=== PATIENT | male | born 1965 ===

== ENCOUNTER 2021-01-24 16:07 | Inpatient (IN) | payer MEDICARE ==
[2021-01-24] MEDS ORDERED: MELATONIN 5 MG TAB PO PRN (19:22)
[2021-01-24] MEDS: levETIRAcetam 500 MG TAB PO SCH (23:58)
[2021-01-24] MEDS: traZODone 50 MG TAB PO SCH (23:59)
--- NOTE | 2021-01-25 07:12 | History and Physical Report ---
GP History & Physical - History of Present Illness Date of admission: 01/24/21 Date of Examination: 01/25/21 Reason for Admission: Danger to self History of Present Illness: HPI Patient is a 55-year-old single, disabled currently on SSI -[place] male who resides with past medical with no significant past medical history and has past medical history of hypertension, dyslipidemia, CVA admitted to the hospital for paranoid delusion. Per documentation exacerbated the patient stated that he was seeing a man was bringing rats to his house, was reported patient had similar incident in the past after his initial stroke. Patient also observed to be brandishing knives towards his neighbor saying that his gun acute demand. Today patient states that he does not know why he is here or why he should be here because he does not have any acute psychiatric problem. Patient was then informed of his behavioral disturbances patient states he does believe he could have had done that but even if he did he was not self-aware at that time. Patient denies any substance use even though his UDS was positive for marijuana. PAST PSYCHIATRIC HISTORY: Diagnoses: None reported Suicide attempts or Self-harm behavior: None reported Prior psychiatric hospitalizations: None reported Substance Abuse history: None reported Previous psychiatric medications tried: None reported Outpatient treatment: None reported PAST MEDICAL HISTORY: Hypertension, dyslipidemia, CVA Family Psychiatric History: None reported or documented SOCIAL HISTORY Marital Status: SINGLE Living Arrangements: lives with partner Employment Status: [employer] Access to guns/weapons: none reported Education: 12th grade History of Abuse: none reported Legal History: None reported REVIEW OF SYSTEMS Constitutional: Negative for weight loss ENT: Negative for stridor Respiratory: Negative for cough or hemoptysis All other systems reviewed and are negative MENTAL STATUS EXAMINATION General Appearance and Behavior: Age appropriate, good hygiene, wearing appropriate clothes, good eye contact, cooperative polite with questioning. Cooperation: Participating/engaged Psychomotor Behavior: unremarkable and within normal limits Mood: Good Affect and affective range: congruent with mood Thought Process: Fluent/Logical, Thought Content: Within reality, Speech: Normal volume, Regular rate and rhythm, Intellectual Functioning: Average Suicidal Ideation: Denies SI Homicidal Ideation: Denies HI Impulse Control: Unimpaired Insight and Judgment: Normal insight and judgment, Memory: Normal, Attention: Normal, Orientation: Alert, oriented, Assessment and Plan - Psychiatric problem (1) Paranoid schizophrenia Current Visit: Yes Status: Acute Treatment Plan Patient admitted for inpatient psychiatric evaluation, medication adjustment and close monitoring The patient's behavior, mood, sleep and appetite will be closely monitored. Patient enrolled in individual and group therapeutic sessions and encouraged to attend. Patient provided with a safe and structured environment. Patient's physical health needs will be addressed by the Hospitalist. Hospitalist Consulted Labs including CBC, CMP, Lipid profile and Hemoglobin A1C levels ordered for baseline reference Social Assessment will be completed and the Transportation Program Director will work with patient and family to ensure a suitable and safe disposition Medication adjustment will be made as clinically indicated Usual Wellness Congregational/Preservation: - Start Trazodone 50 mg po QHS & 50 mg po QHS PRN between 10 PM & 2 AM for insomnia - Start Melatonin 5 mg po QHS to promote circadian rhythm - Start [place]-3 for brain health, reduce impulsivity, and as adjunctive treatment for mood disorder, continue upon discharge given overall benefits. - Start B1 prophylaxis with 200 mg po for 5 days The patient agreed on the treatment plan, understood the risk, benefit, alternative treatment, potential consequence of no treatment, and gave informed consent. Initial Certification Inpatient psych services: I certify that the inpatient psychiatric services are required for treatment that could reasonably be expected to improve the patient's condition. Estimated days: 7 Post hospital care: primary care provider, psychiatric provider Legal Status: Voluntary Patient Problems: Current Active Problems Paranoid schizophrenia (Acute) Medications and Allergies Allergies Allergy/AdvReac Type Severity Reaction Status Date / Time No Known Drug Allergies Allergy Unknown Verified 01/24/21 23:22 Home Medications Medication Instructions Recorded Confirmed Last Taken Type Aspirin [Adult Aspirin] 81 mg PO DAILY 01/24/21 01/24/21 Unknown History Lisinopril [Zestril] 5 mg PO DAILY 01/24/21 01/24/21 Unknown History Lovastatin [Altoprev] 10 mg PO HS 01/24/21 01/24/21 Unknown History Potassium Chloride [K-Dur] 10 meq PO QDAY 01/24/21 01/24/21 Unknown History hydroCHLOROthiazide [HCTZ] 25 mg PO QDAY 01/24/21 01/24/21 Unknown History levETIRAcetam [Keppra TAB] 500 mg PO BID 01/24/21 01/24/21 Unknown History Active Meds: Active Medications Levetiracetam (Levetiracetam 500 Mg Tab) 500 mg PO BID [facility] Last Admin: 01/24/21 23:58 Dose: 500 mg Documented by: Melatonin (Melatonin 5 Mg Tab) 5 mg PO QHS PRN PRN Reason: Sleep Last Admin: 01/24/21 23:59 Dose: 5 mg Documented by: Trazodone HCl (Trazodone 50 Mg Tab) 50 mg PO QHS [facility] Last Admin: 01/24/21 23:59 Dose: 50 mg Documented by: Results - Results Labs/Vitals: Last Vital Signs Temp 99.7 F H 01/24/21 21:14 Pulse 95 H 01/24/21 21:14 Resp 18 01/24/21 21:14 BP 136/94 01/24/21 21:14 Pulse Ox 97 01/24/21 21:14 Physical Examination - Constitutional Vitals: Vital Signs Temp Pulse Resp BP Pulse Ox 99.7 F H 95 H 18 136/94 97 01/24/21 21:14 01/24/21 21:14 01/24/21 21:14 01/24/21 21:14 01/24/21 21:14 Temperature -Last 24 Hours Temperature 99.7 F Mental Status Exam - Vital signs Last Vital Signs Temp 99.7 F H 01/24/21 21:14 Pulse 95 H 01/24/21 21:14 Resp 18 01/24/21 21:14 BP 136/94 01/24/21 21:14 Pulse Ox 97 01/24/21 21:14 Assessment and Plan - Psychiatric problem (1) Paranoid schizophrenia Current Visit: Yes Status: Acute Physician Certification - Certification Statement Physician Certification Statement: This is an acknowledgement statement that CHACORTA GALLARDO is a 55 year old M who requires inpatient psychiatric admission for treatment which could reasonably be expected to improve the patient's condition for Estimated period of time patient will need to remain in the hospital: [ ] Plan for post-hospital care: [ ]
[2021-01-25] MEDS: levETIRAcetam 500 MG TAB PO SCH ×2 (09:16→21:26)
--- NOTE | 2021-01-25 13:15 | Consultation ---
History of Present Illness - Reason for Consult Consult date: 01/25/21 Medical consult Requesting physician: BETSY TOVAR - History of Present Illness 55-year-old male patient with significant past medical history of seizure disorder on antiepileptic medications hypertension dyslipidemia Was admitted to [facility] unit by psychiatrist for further evaluation management of paranoid schizophrenia. Hospitalist service was requested for medical consult Patient has history of hypertension dyslipidemia and seizures Patient is on appropriate medications follows with primary care physician Patient denies of any chest pain or shortness of breath Denies headache dizziness weakness or numbness No nausea vomiting or abdominal pain Past History Past Medical History: hypertension, hyperlipidemia, seizures Past Surgical History: Other (Abdominal surgery , EGD) Social history: denies: smoking, alcohol abuse, prescription drug abuse Family history: no significant family history Medications and Allergies Allergies Allergy/AdvReac Type Severity Reaction Status Date / Time No Known Drug Allergies Allergy Unknown Verified 01/24/21 23:22 Home Medications Medication Instructions Recorded Confirmed Last Taken Type Aspirin [Adult Aspirin] 81 mg PO DAILY 01/24/21 01/24/21 Unknown History Lisinopril [Zestril] 5 mg PO DAILY 01/24/21 01/24/21 Unknown History Lovastatin [Altoprev] 10 mg PO HS 01/24/21 01/24/21 Unknown History Potassium Chloride [K-Dur] 10 meq PO QDAY 01/24/21 01/24/21 Unknown History hydroCHLOROthiazide [HCTZ] 25 mg PO QDAY 01/24/21 01/24/21 Unknown History levETIRAcetam [Keppra TAB] 500 mg PO BID 01/24/21 01/24/21 Unknown History Active Meds: Active Medications Levetiracetam (Levetiracetam 500 Mg Tab) 500 mg PO BID [facility] Last Admin: 01/25/21 09:16 Dose: 500 mg Documented by: Melatonin (Melatonin 5 Mg Tab) 5 mg PO QHS PRN PRN Reason: Sleep Last Admin: 01/24/21 23:59 Dose: 5 mg Documented by: Trazodone HCl (Trazodone 50 Mg Tab) 50 mg PO QHS [facility] Last Admin: 01/24/21 23:59 Dose: 50 mg Documented by: Review of Systems Constitutional: no weight loss, no weight gain, no fever, no chills Ears, nose, mouth and throat: no nasal congestion, no nasal discharge Cardiovascular: no chest pain, no palpitations Respiratory: no cough, no shortness of breath Gastrointestinal: no abdominal pain, no nausea, no vomiting Genitourinary Male: no dysuria, no hematuria Musculoskeletal: no myalgias, no arthritis Integumentary: no rash, no lesions Neurological: seizures, no weakness, no parathesias Psychiatric: hallucinations, other (Paranoid), no anxiety, no depression Endocrine: no cold intolerance, no heat intolerance, no polydipsia, no polyuria Hematologic/Lymphatic: no easy bruising, no easy bleeding Allergic/Immunologic: no urticaria, no allergic rhinitis Exam - Constitutional Vitals: Temp Pulse Resp BP Pulse Ox 97.3 F L 60 20 107/76 94 01/25/21 08:29 01/25/21 08:29 01/25/21 08:29 01/25/21 08:29 01/25/21 08:29 General appearance: Present: no acute distress, well-nourished - EENT Eyes: Present: PERRL, EOM intact - Neck Neck: Present: supple, normal ROM - Respiratory Respiratory effort: normal Respiratory: bilateral: diminished, negative: rales, rhonchi, wheezing - Cardiovascular Rhythm: regular Heart Sounds: Present: S1 & S2 - Extremities Extremities: no ischemia, No edema - Abdominal General gastrointestinal: Present: soft, non-tender, non-distended, normal bowel sounds - Integumentary Integumentary: Present: clear, warm - Musculoskeletal Musculoskeletal: strength equal bilaterally, generalized weakness - Psychiatric Psychiatric: appropriate mood/affect, cooperative - Neurologic Neurologic: moves all extremities Assessment and Plan - Patient Problems (1) Seizures Plan to address problem: Seizure precautions Resume home seizure medication Do not drive, supportive care (2) Hypertension Plan to address problem: Moderate control, resume home antihypertensives As needed hydralazine (3) Dyslipidemia Plan to address problem: Low-cholesterol diet, continue statin (4) Paranoid schizophrenia Current Visit: Yes Status: Acute Plan to address problem: Management per psych (5) DVT prophylaxis Current Visit: Yes Status: Acute Plan to address problem: SCDs while resting, ambulate as tolerated Closely monitor patient and adjust management as needed Plan of care reviewed with the patient and his nurse Thank you for this consultation we will follow the patient along with you as needed basis Call us with questions
[2021-01-25 20:15] LABS: Basophils # (Auto) 0.1 K/mm3 (0.0-0.1); Basophils % (Auto) 0.6 % (0.0-1.8); Eosinophils # (Auto) 0.4 K/mm3 (0.0-0.4); Eosinophils % (Auto) 3.9 % (0.0-4.3); Hematocrit 46.5 % (35.5-45.6); Hemoglobin 15.3 gm/dl (11.8-15.2); Lymphocytes # (Auto) 2.2 K/mm3 (1.2-5.4); Lymphocytes % (Auto) 20.1 % (13.4-35.0); Mean Corpuscular HGB Conc 33 % (32-34); Mean Corpuscular Volume 98 fl (84-94); Monocytes # (Auto) 1.1 K/mm3 (0.0-0.8); Monocytes % (Auto) 9.8 % (0.0-7.3); Platelet Count 235 K/mm3 (140-440); Red Blood Count 4.72 M/mm3 (3.65-5.03); Red Cell Distribution Width 14.4 % (13.2-15.2)
[2021-01-25 20:36] LABS: Alanine Aminotransferase 14 units/L (7-56); BUN/Creatinine Ratio 19; Blood Urea Nitrogen 23 mg/dL (9-20); Calcium 9.5 mg/dL (8.4-10.2); Chol/HDL Ratio 2.17 %; HDL Cholesterol 52 mg/dL (40-59); Hemolysis Index 14; LDL Cholesterol,Direct 61 mg/dL (50-130)
[2021-01-25] MEDS: traZODone 50 MG TAB PO SCH (21:18)
[2021-01-25] MEDS ORDERED: NON-FORMULARY EACH (Lovastatin [Altoprev] 20 MG Tab.Er.24h) PO SCH (22:00)
--- NOTE | 2021-01-26 07:48 | Progress Note ---
Subjective Date of service: 01/26/21 Principal diagnosis: Paranoid Schizophrenia Subjective Comment: Per Nurse Note: Last evening the patient spent in the activity room interacting appropriately with his peers. He denies si/hi/ah/vh. He has a good appetite and is medication compliant. Patient's mood remains labile. He becomes tearful easily. Due to his stroke he has some difficulty in expressing himself. He stutters before becoming able to get his words out. He apologizes often for everything he does as if he is afraid that he is doing something "wrong". Overnight the patient rested quietly. He presents as sleeping 7 hours. He awoke at 6 am and came out of his room. He was sobbing. He stated he was confused and he felt like he had slept and "missed" something. Patient was reassured that he did not miss anything. He was encouraged to lay down and rest a little while. He was reassured that we would always let him know about activities so he did not have to worry about missing anything. Will continue to monitor patient for safety. The patient was seen today. He is cooperative and pleasant. He does appear a little anxious. He is a/o x 3. He has poor insight. He's unsure as to why he's admitted into the hospital. He states, "I really don't know." Asked him about delusions of man with rats, he states "I really don't know." He says "but I feel calm." The patient denies SI/HI or hallucinations of any kind. REVIEW OF SYSTEMS Constitutional: Negative for weight loss ENT: Negative for stridor Respiratory: Negative for cough or hemoptysis All other systems reviewed and are negative MENTAL STATUS EXAMINATION General Appearance and Behavior: Age appropriate, good hygiene, wearing appropriate clothes, good eye contact, cooperative polite with questioning. Cooperation: Participating/engaged Psychomotor Behavior: unremarkable and within normal limits Mood: calm Affect and affective range: congruent with mood Thought Process: Fluent/Logical, Thought Content: Within reality, Speech: Normal volume, Regular rate and rhythm, Suicidal Ideation: Denies SI Homicidal Ideation: Denies HI Impulse Control: Unimpaired Insight and Judgment: poor insight and judgment, Memory: Limited Attention: Limited Orientation: Alert, oriented, Assessment and Plan (1) Paranoid schizophrenia Current Visit: Yes Status: Acute Treatment Plan Patient admitted for inpatient psychiatric evaluation, medication adjustment and close monitoring The patient's behavior, mood, sleep and appetite will be closely monitored. Patient enrolled in individual and group therapeutic sessions and encouraged to attend. Patient provided with a safe and structured environment. Patient's physical health needs will be addressed by the Hospitalist. Hospitalist Consulted Labs including CBC, CMP, Lipid profile and Hemoglobin A1C levels ordered for baseline reference Social Assessment will be completed and the Software Recruiter will work with patient and family to ensure a suitable and safe disposition Medication adjustment will be made as clinically indicated Start Risperidone 0.25mg po BID Usual Wellness Denominational/Preservation: - Start Trazodone 50 mg po QHS & 50 mg po QHS PRN between 10 PM & 2 AM for insomnia - Start Melatonin 5 mg po QHS to promote circadian rhythm - Start [place]-3 for brain health, reduce impulsivity, and as adjunctive treatment for mood disorder, continue upon discharge given overall benefits. - Start B1 prophylaxis with 200 mg po for 5 days The patient agreed on the treatment plan, understood the risk, benefit, alternative treatment, potential consequence of no treatment, and gave informed consent. Estimated days: 5 Post hospital care: primary care provider, psychiatric provider Medications and Allergies Allergies Allergy/AdvReac Type Severity Reaction Status Date / Time No Known Drug Allergies Allergy Unknown Verified 01/24/21 23:22 Home Medications Medication Instructions Recorded Confirmed Last Taken Type Aspirin [Adult Aspirin] 81 mg PO DAILY 01/24/21 01/24/21 Unknown History Lisinopril [Zestril] 5 mg PO DAILY 01/24/21 01/24/21 Unknown History Lovastatin [Altoprev] 10 mg PO HS 01/24/21 01/24/21 Unknown History Potassium Chloride [K-Dur] 10 meq PO QDAY 01/24/21 01/24/21 Unknown History hydroCHLOROthiazide [HCTZ] 25 mg PO QDAY 01/24/21 01/24/21 Unknown History levETIRAcetam [Keppra TAB] 500 mg PO BID 01/24/21 01/24/21 Unknown History Active Meds: Active Medications Aspirin (Aspirin Ec 81 Mg Tab) 81 mg PO DAILY [facility] Atorvastatin Calcium (Atorvastatin 10 Mg Tab) 5 mg PO QHS [facility] Last Admin: 01/25/21 21:26 Dose: 5 mg Documented by: Levetiracetam (Levetiracetam 500 Mg Tab) 500 mg PO BID [facility] Last Admin: 01/25/21 21:26 Dose: 500 mg Documented by: Lisinopril (Lisinopril 5 Mg Tab) 5 mg PO DAILY [facility] Melatonin (Melatonin 5 Mg Tab) 5 mg PO QHS PRN PRN Reason: Sleep Last Admin: 01/24/21 23:59 Dose: 5 mg Documented by: Trazodone HCl (Trazodone 50 Mg Tab) 50 mg PO QHS [facility] Last Admin: 01/25/21 21:18 Dose: 50 mg Documented by: Results - Results Labs/Vitals: Laboratory Last Values WBC 11.2 K/mm3 (4.5-11.0) H 01/25/21 19:42 RBC 4.72 M/mm3 (3.65-5.03) 01/25/21 19:42 Hgb 15.3 gm/dl (11.8-15.2) H 01/25/21 19:42 Hct 46.5 % (35.5-45.6) H 01/25/21 19:42 MCV 98 fl (84-94) H 01/25/21 19:42 MCH 32 pg (28-32) 01/25/21 19:42 MCHC 33 % (32-34) 01/25/21 19:42 RDW 14.4 % (13.2-15.2) 01/25/21 19:42 Plt Count 235 K/mm3 (140-440) 01/25/21 19:42 Lymph % (Auto) 20.1 % (13.4-35.0) 01/25/21 19:42 [place] % (Auto) 9.8 % (0.0-7.3) H 01/25/21 19:42 Eos % (Auto) 3.9 % (0.0-4.3) 01/25/21 19:42 Baso % (Auto) 0.6 % (0.0-1.8) 01/25/21 19:42 Lymph # (Auto) 2.2 K/mm3 (1.2-5.4) 01/25/21 19:42 [place] # (Auto) 1.1 K/mm3 (0.0-0.8) H 01/25/21 19:42 Eos # (Auto) 0.4 K/mm3 (0.0-0.4) 01/25/21 19:42 Baso # (Auto) 0.1 K/mm3 (0.0-0.1) 01/25/21 19:42 Seg Neutrophils % 65.6 % (40.0-70.0) 01/25/21 19:42 Seg Neutrophils # 7.3 K/mm3 (1.8-7.7) 01/25/21 19:42 Sodium 139 mmol/L (137-145) 01/25/21 19:42 Potassium 4.4 mmol/L (3.6-5.0) 01/25/21 19:42 Chloride 99.7 mmol/L (98-107) 01/25/21 19:42 Carbon Dioxide 30 mmol/L (22-30) 01/25/21 19:42 Anion Gap 14 mmol/L 01/25/21 19:42 BUN 23 mg/dL (9-20) H 01/25/21 19:42 Creatinine 1.2 mg/dL (0.8-1.3) 01/25/21 19:42 Estimated GFR > 60 ml/min 01/25/21 19:42 BUN/Creatinine Ratio 19 % 01/25/21 19:42 Glucose 98 mg/dL (75-100) 01/25/21 19:42 Hemoglobin A1c 5.5 % (4-6) 01/25/21 19:42 Calcium 9.5 mg/dL (8.4-10.2) 01/25/21 19:42 Total Bilirubin 0.50 mg/dL (0.1-1.2) 01/25/21 19:42 AST 22 units/L (5-40) 01/25/21 19:42 ALT 14 units/L (7-56) 01/25/21 19:42 Alkaline Phosphatase 95 units/L (35-129) 01/25/21 19:42 Total Protein 6.6 g/dL (6.3-8.2) 01/25/21 19:42 Albumin 4.0 g/dL (3.9-5) 01/25/21 19:42 Albumin/Globulin Ratio 1.5 % 01/25/21 19:42 Triglycerides 42 mg/dL (2-149) 01/25/21 19:42 Cholesterol 113 mg/dL (50-199) 01/25/21 19:42 LDL Cholesterol Direct 61 mg/dL (50-130) 01/25/21 19:42 HDL Cholesterol 52 mg/dL (40-59) 01/25/21 19:42 Cholesterol/HDL Ratio 2.17 % 01/25/21 19:42 Last Vital Signs Temp 98.9 F 01/25/21 22:00 Pulse 90 01/25/21 22:00 Resp 16 01/25/21 22:00 BP 147/92 01/25/21 22:00 Pulse Ox 99 01/25/21 22:00
[2021-01-26] MEDS: levETIRAcetam 500 MG TAB PO SCH ×2 (09:13→21:10)
[2021-01-26] MEDS: ASPIRIN EC 81 MG TAB PO SCH (09:13)
[2021-01-26] MEDS: risperiDONE 0.25 MG TAB PO SCH ×2 (09:13→21:10)
[2021-01-26] MEDS: LISINOPRIL 5 MG TAB PO SCH (09:14)
[2021-01-26] MEDS ORDERED: hydroCHLOROthiazide 25 MG TAB PO SCH (10:00)
[2021-01-26] MEDS: traZODone 50 MG TAB PO SCH (21:09)
--- NOTE | 2021-01-27 07:58 | Progress Note ---
Subjective Date of service: 01/27/21 Principal diagnosis: Paranoid Schizophrenia Subjective Comment: Per Nurse Note: Patient spent his day in the activity room interacting appropriately with his peers. He denies si/hi/ah/vh. He has a good appetite and is medication compliant. Patient becomes tearful easily, his insight is poor, he says he did not know why he is here. Staff explained to pt the reason he was admitted pt did not remember. Pt was reassured. Will continue to monitor. The patient was seen today. He is cooperative and pleasant. He appears more calm today. He says he slept well. The patient denies SI/HI or hallucinations of any kind. He reports feeling better. REVIEW OF SYSTEMS Constitutional: Negative for weight loss ENT: Negative for stridor Respiratory: Negative for cough or hemoptysis All other systems reviewed and are negative MENTAL STATUS EXAMINATION General Appearance and Behavior: Age appropriate, good hygiene, wearing appropriate clothes, good eye contact, cooperative polite with questioning. Cooperation: Participating/engaged Psychomotor Behavior: unremarkable and within normal limits Mood: better Affect and affective range: congruent with mood Thought Process: Fluent/Logical, Thought Content: Within reality, Speech: Normal volume, Regular rate and rhythm, Suicidal Ideation: Denies SI Homicidal Ideation: Denies HI Impulse Control: Unimpaired Insight and Judgment: poor insight and judgment, Memory: Limited Attention: Limited Orientation: Alert, oriented, Assessment and Plan (1) Paranoid schizophrenia Current Visit: Yes Status: Acute Treatment Plan Patient admitted for inpatient psychiatric evaluation, medication adjustment and close monitoring The patient's behavior, mood, sleep and appetite will be closely monitored. Patient enrolled in individual and group therapeutic sessions and encouraged to attend. Patient provided with a safe and structured environment. Patient's physical health needs will be addressed by the Hospitalist. Hospitalist Consulted Labs including CBC, CMP, Lipid profile and Hemoglobin A1C levels ordered for baseline reference Social Assessment will be completed and the Ged Tutor will work with patient and family to ensure a suitable and safe disposition Medication adjustment will be made as clinically indicated Continue Risperidone 0.25mg po BID Start Zoloft 25mg po daily (nurse reports patient is tearful a lot) Usual Wellness Hoahaoism/Preservation: - Start Trazodone 50 mg po QHS & 50 mg po QHS PRN between 10 PM & 2 AM for insomnia - Start Melatonin 5 mg po QHS to promote circadian rhythm - Start [place]-3 for brain health, reduce impulsivity, and as adjunctive treatment for mood disorder, continue upon discharge given overall benefits. - Start B1 prophylaxis with 200 mg po for 5 days The patient agreed on the treatment plan, understood the risk, benefit, alternative treatment, potential consequence of no treatment, and gave informed consent. Estimated days: 3 Post hospital care: primary care provider, psychiatric provider Medications and Allergies Allergies Allergy/AdvReac Type Severity Reaction Status Date / Time No Known Drug Allergies Allergy Unknown Verified 01/24/21 23:22 Home Medications Medication Instructions Recorded Confirmed Last Taken Type Aspirin [Adult Aspirin] 81 mg PO DAILY 01/24/21 01/24/21 Unknown History Lisinopril [Zestril] 5 mg PO DAILY 01/24/21 01/24/21 Unknown History Lovastatin [Altoprev] 10 mg PO HS 01/24/21 01/24/21 Unknown History Potassium Chloride [K-Dur] 10 meq PO QDAY 01/24/21 01/24/21 Unknown History hydroCHLOROthiazide [HCTZ] 25 mg PO QDAY 01/24/21 01/24/21 Unknown History levETIRAcetam [Keppra TAB] 500 mg PO BID 01/24/21 01/24/21 Unknown History Active Meds: Active Medications Aspirin (Aspirin Ec 81 Mg Tab) 81 mg PO DAILY [facility] Last Admin: 01/26/21 09:13 Dose: 81 mg Documented by: Atorvastatin Calcium (Atorvastatin 10 Mg Tab) 5 mg PO QHS [facility] Last Admin: 01/26/21 21:10 Dose: 5 mg Documented by: Levetiracetam (Levetiracetam 500 Mg Tab) 500 mg PO BID [facility] Last Admin: 01/26/21 21:10 Dose: 500 mg Documented by: Lisinopril (Lisinopril 5 Mg Tab) 5 mg PO DAILY [facility] Last Admin: 01/26/21 09:14 Dose: Not Given Documented by: Melatonin (Melatonin 5 Mg Tab) 5 mg PO QHS PRN PRN Reason: Sleep Last Admin: 01/24/21 23:59 Dose: 5 mg Documented by: Risperidone (Risperidone 0.25 Mg Tab) 0.25 mg PO BID [facility] Last Admin: 01/26/21 21:10 Dose: 0.25 mg Documented by: Trazodone HCl (Trazodone 50 Mg Tab) 50 mg PO QHS [facility] Last Admin: 01/26/21 21:09 Dose: 50 mg Documented by: Results - Results Labs/Vitals: Laboratory Last Values WBC 11.2 K/mm3 (4.5-11.0) H 01/25/21 19:42 RBC 4.72 M/mm3 (3.65-5.03) 01/25/21 19:42 Hgb 15.3 gm/dl (11.8-15.2) H 01/25/21 19:42 Hct 46.5 % (35.5-45.6) H 01/25/21 19:42 MCV 98 fl (84-94) H 01/25/21 19:42 MCH 32 pg (28-32) 01/25/21 19:42 MCHC 33 % (32-34) 01/25/21 19:42 RDW 14.4 % (13.2-15.2) 01/25/21 19:42 Plt Count 235 K/mm3 (140-440) 01/25/21 19:42 Lymph % (Auto) 20.1 % (13.4-35.0) 01/25/21 19:42 [place] % (Auto) 9.8 % (0.0-7.3) H 01/25/21 19:42 Eos % (Auto) 3.9 % (0.0-4.3) 01/25/21 19:42 Baso % (Auto) 0.6 % (0.0-1.8) 01/25/21 19:42 Lymph # (Auto) 2.2 K/mm3 (1.2-5.4) 01/25/21 19:42 [place] # (Auto) 1.1 K/mm3 (0.0-0.8) H 01/25/21 19:42 Eos # (Auto) 0.4 K/mm3 (0.0-0.4) 01/25/21 19:42 Baso # (Auto) 0.1 K/mm3 (0.0-0.1) 01/25/21 19:42 Seg Neutrophils % 65.6 % (40.0-70.0) 01/25/21 19:42 Seg Neutrophils # 7.3 K/mm3 (1.8-7.7) 01/25/21 19:42 Sodium 139 mmol/L (137-145) 01/25/21 19:42 Potassium 4.4 mmol/L (3.6-5.0) 01/25/21 19:42 Chloride 99.7 mmol/L (98-107) 01/25/21 19:42 Carbon Dioxide 30 mmol/L (22-30) 01/25/21 19:42 Anion Gap 14 mmol/L 01/25/21 19:42 BUN 23 mg/dL (9-20) H 01/25/21 19:42 Creatinine 1.2 mg/dL (0.8-1.3) 01/25/21 19:42 Estimated GFR > 60 ml/min 01/25/21 19:42 BUN/Creatinine Ratio 19 % 01/25/21 19:42 Glucose 98 mg/dL (75-100) 01/25/21 19:42 Hemoglobin A1c 5.5 % (4-6) 01/25/21 19:42 Calcium 9.5 mg/dL (8.4-10.2) 01/25/21 19:42 Total Bilirubin 0.50 mg/dL (0.1-1.2) 01/25/21 19:42 AST 22 units/L (5-40) 01/25/21 19:42 ALT 14 units/L (7-56) 01/25/21 19:42 Alkaline Phosphatase 95 units/L (35-129) 01/25/21 19:42 Total Protein 6.6 g/dL (6.3-8.2) 01/25/21 19:42 Albumin 4.0 g/dL (3.9-5) 01/25/21 19:42 Albumin/Globulin Ratio 1.5 % 01/25/21 19:42 Triglycerides 42 mg/dL (2-149) 01/25/21 19:42 Cholesterol 113 mg/dL (50-199) 01/25/21 19:42 LDL Cholesterol Direct 61 mg/dL (50-130) 01/25/21 19:42 HDL Cholesterol 52 mg/dL (40-59) 01/25/21 19:42 Cholesterol/HDL Ratio 2.17 % 01/25/21 19:42 Last Vital Signs Temp 99.1 F 01/26/21 19:42 Pulse 53 L 01/26/21 19:42 Resp 16 01/26/21 19:42 BP 143/76 01/26/21 19:42 Pulse Ox 98 01/26/21 19:42
[2021-01-27] MEDS: LISINOPRIL 5 MG TAB PO SCH (09:57)
[2021-01-27] MEDS: ASPIRIN EC 81 MG TAB PO SCH (09:57)
[2021-01-27] MEDS: levETIRAcetam 500 MG TAB PO SCH ×2 (09:57→21:00)
[2021-01-27] MEDS: risperiDONE 0.25 MG TAB PO SCH ×2 (09:57→21:01)
[2021-01-27] MEDS: SERTRALINE 25 MG TAB PO SCH (09:58)
--- NOTE | 2021-01-27 15:30 | Progress Note ---
Assessment and Plan Assessment and plan: -- Seizure disorder Plan to address problem: Seizure precautions Resume home seizure medication Do not drive, supportive care --Hypertension Plan to address problem: Moderate control, resume home antihypertensives As needed hydralazine -- Dyslipidemia Plan to address problem: Low-cholesterol diet, continue statin --Paranoid schizophrenia Current Visit: Yes Status: Acute Plan to address problem: Management per psych --DVT prophylaxis Current Visit: Yes Status: Acute Plan to address problem: SCDs while resting, ambulate as tolerated Closely monitor patient and adjust management as needed Patient is ambulatory and tolerating oral nutrition Disposition per psych History Interval history: I have seen and examined the patient in activities room in [facility] psych floor Patient feels better happy, he ate his breakfast Denies any nausea vomiting No new complaints Vital signs noted Hospitalist Physical - Constitutional Vitals: Temp Pulse Resp BP Pulse Ox 99.1 F 98 H 20 143/76 99 01/27/21 09:49 01/27/21 09:57 01/27/21 09:49 01/27/21 09:57 01/27/21 09:49 General appearance: Present: no acute distress, well-nourished - EENT Eyes: Present: PERRL, EOM intact - Neck Neck: Present: supple, normal ROM - Respiratory Respiratory effort: normal Respiratory: bilateral: diminished, rhonchi, negative: rales, wheezing - Cardiovascular Rhythm: regular Heart Sounds: Present: S1 & S2 - Extremities Extremities: no ischemia, No edema - Abdominal General gastrointestinal: soft, non-tender, non-distended, normal bowel sounds - Integumentary Integumentary: Present: clear, warm - Psychiatric Psychiatric: appropriate mood/affect, cooperative - Neurologic Neurologic: CNII-XII intact, moves all extremities Results - Labs CBC & Chem 7: 01/25/21 19:42 01/25/21 19:42 Labs: Laboratory Last Values WBC 11.2 K/mm3 (4.5-11.0) H 01/25/21 19:42 RBC 4.72 M/mm3 (3.65-5.03) 01/25/21 19:42 Hgb 15.3 gm/dl (11.8-15.2) H 01/25/21 19:42 Hct 46.5 % (35.5-45.6) H 01/25/21 19:42 MCV 98 fl (84-94) H 01/25/21 19:42 MCH 32 pg (28-32) 01/25/21 19:42 MCHC 33 % (32-34) 01/25/21 19:42 RDW 14.4 % (13.2-15.2) 01/25/21 19:42 Plt Count 235 K/mm3 (140-440) 01/25/21 19:42 Lymph % (Auto) 20.1 % (13.4-35.0) 01/25/21 19:42 [place] % (Auto) 9.8 % (0.0-7.3) H 01/25/21 19:42 Eos % (Auto) 3.9 % (0.0-4.3) 01/25/21 19:42 Baso % (Auto) 0.6 % (0.0-1.8) 01/25/21 19:42 Lymph # (Auto) 2.2 K/mm3 (1.2-5.4) 01/25/21 19:42 [place] # (Auto) 1.1 K/mm3 (0.0-0.8) H 01/25/21 19:42 Eos # (Auto) 0.4 K/mm3 (0.0-0.4) 01/25/21 19:42 Baso # (Auto) 0.1 K/mm3 (0.0-0.1) 01/25/21 19:42 Seg Neutrophils % 65.6 % (40.0-70.0) 01/25/21 19:42 Seg Neutrophils # 7.3 K/mm3 (1.8-7.7) 01/25/21 19:42 Sodium 139 mmol/L (137-145) 01/25/21 19:42 Potassium 4.4 mmol/L (3.6-5.0) 01/25/21 19:42 Chloride 99.7 mmol/L (98-107) 01/25/21 19:42 Carbon Dioxide 30 mmol/L (22-30) 01/25/21 19:42 Anion Gap 14 mmol/L 01/25/21 19:42 BUN 23 mg/dL (9-20) H 01/25/21 19:42 Creatinine 1.2 mg/dL (0.8-1.3) 01/25/21 19:42 Estimated GFR > 60 ml/min 01/25/21 19:42 BUN/Creatinine Ratio 19 % 01/25/21 19:42 Glucose 98 mg/dL (75-100) 01/25/21 19:42 Hemoglobin A1c 5.5 % (4-6) 01/25/21 19:42 Calcium 9.5 mg/dL (8.4-10.2) 01/25/21 19:42 Total Bilirubin 0.50 mg/dL (0.1-1.2) 01/25/21 19:42 AST 22 units/L (5-40) 01/25/21 19:42 ALT 14 units/L (7-56) 01/25/21 19:42 Alkaline Phosphatase 95 units/L (35-129) 01/25/21 19:42 Total Protein 6.6 g/dL (6.3-8.2) 01/25/21 19:42 Albumin 4.0 g/dL (3.9-5) 01/25/21 19:42 Albumin/Globulin Ratio 1.5 % 01/25/21 19:42 Triglycerides 42 mg/dL (2-149) 01/25/21 19:42 Cholesterol 113 mg/dL (50-199) 01/25/21 19:42 LDL Cholesterol Direct 61 mg/dL (50-130) 01/25/21 19:42 HDL Cholesterol 52 mg/dL (40-59) 01/25/21 19:42 Cholesterol/HDL Ratio 2.17 % 01/25/21 19:42 [place]/IV: Voiding Method Toilet Active Medications - Current Medications Current Medications: Generic Name Dose Route Start Last Admin Trade Name Leroyq PRN Reason Stop Dose Admin Aspirin 81 mg 01/26/21 10:00 01/27/21 09:57 Aspirin Ec 81 Mg Tab PO 81 mg DAILY [facility] Administration Atorvastatin Calcium 5 mg 01/25/21 22:00 01/26/21 21:10 Atorvastatin 10 Mg Tab PO 5 mg QHS [facility] Administration Levetiracetam 500 mg 01/24/21 23:00 01/27/21 09:57 Levetiracetam 500 Mg Tab PO 500 mg BID [facility] Administration Lisinopril 5 mg 01/26/21 10:00 01/27/21 09:57 Lisinopril 5 Mg Tab PO 5 mg DAILY [facility] Administration Melatonin 5 mg 01/24/21 19:22 01/24/21 23:59 Melatonin 5 Mg Tab PO 5 mg QHS PRN Administration Sleep Risperidone 0.25 mg 01/26/21 10:00 01/27/21 09:57 Risperidone 0.25 Mg Tab PO 0.25 mg BID [facility] Administration Sertraline HCl 25 mg 01/27/21 10:00 01/27/21 09:58 Sertraline 25 Mg Tab PO 25 mg QDAY [facility] Administration Trazodone HCl 50 mg 01/24/21 22:00 01/26/21 21:09 Trazodone 50 Mg Tab PO 50 mg QHS [facility] Administration
[2021-01-27] MEDS: traZODone 50 MG TAB PO SCH (21:00)
--- NOTE | 2021-01-28 08:21 | Progress Note ---
Subjective Date of service: 01/28/21 Principal diagnosis: Paranoid Schizophrenia Subjective Comment: Per Nurse Note: pt spent last evening in his room, pt is appropriate on the unit, able to make needs known, bright affect, stable mood, denies si/hi, denies a/v/h, medication compliant, good appetite, slept well , presents as sleeping for 8hrs plus, no distress noted, will continue to monitor for safety. The patient was seen today. He is calm, cooperative and pleasant. He denies SI/HI or hallucinations of any kind. He says he feels "great." The patient says he slept well. REVIEW OF SYSTEMS Constitutional: Negative for weight loss ENT: Negative for stridor Respiratory: Negative for cough or hemoptysis All other systems reviewed and are negative MENTAL STATUS EXAMINATION General Appearance and Behavior: Age appropriate, good hygiene, wearing appropriate clothes, good eye contact, calm, cooperative polite with questioning. Cooperation: Participating/engaged Psychomotor Behavior: unremarkable and within normal limits Mood: great Affect and affective range: congruent with mood Thought Process: Fluent/Logical Thought Content: Within reality Speech: Normal volume, Regular rate and rhythm Suicidal Ideation: Denies SI Homicidal Ideation: Denies HI Hallucinations: Denies Delusions: None elicited Impulse Control: Unimpaired Insight and Judgment: limited insight and judgment Memory: Limited Attention: Limited Orientation: Alert, oriented Assessment and Plan (1) Paranoid schizophrenia Current Visit: Yes Status: Acute Treatment Plan Patient admitted for inpatient psychiatric evaluation, medication adjustment and close monitoring The patient's behavior, mood, sleep and appetite will be closely monitored. Patient enrolled in individual and group therapeutic sessions and encouraged to attend. Patient provided with a safe and structured environment. Patient's physical health needs will be addressed by the Hospitalist. Hospitalist Consulted Labs including CBC, CMP, Lipid profile and Hemoglobin A1C levels ordered for baseline reference Social Assessment will be completed and the Stock Car Driver will work with patient and family to ensure a suitable and safe disposition Medication adjustment will be made as clinically indicated Continue Risperidone 0.25mg po BID Continue Zoloft 25mg po daily (nurse reports patient is tearful a lot) Usual Wellness Judaism/Preservation: - Start Trazodone 50 mg po QHS & 50 mg po QHS PRN between 10 PM & 2 AM for insomnia - Start Melatonin 5 mg po QHS to promote circadian rhythm - Start [place]-3 for brain health, reduce impulsivity, and as adjunctive treatment for mood disorder, continue upon discharge given overall benefits. - Start B1 prophylaxis with 200 mg po for 5 days The patient agreed on the treatment plan, understood the risk, benefit, alternative treatment, potential consequence of no treatment, and gave informed consent. Estimated days: 3 Post hospital care: primary care provider, psychiatric provider Medications and Allergies Allergies Allergy/AdvReac Type Severity Reaction Status Date / Time No Known Drug Allergies Allergy Unknown Verified 01/24/21 23:22 Home Medications Medication Instructions Recorded Confirmed Last Taken Type Aspirin [Adult Aspirin] 81 mg PO DAILY 01/24/21 01/24/21 Unknown History Lisinopril [Zestril] 5 mg PO DAILY 01/24/21 01/24/21 Unknown History Lovastatin [Altoprev] 10 mg PO HS 01/24/21 01/24/21 Unknown History Potassium Chloride [K-Dur] 10 meq PO QDAY 01/24/21 01/24/21 Unknown History hydroCHLOROthiazide [HCTZ] 25 mg PO QDAY 01/24/21 01/24/21 Unknown History levETIRAcetam [Keppra TAB] 500 mg PO BID 01/24/21 01/24/21 Unknown History Active Meds: Active Medications Aspirin (Aspirin Ec 81 Mg Tab) 81 mg PO DAILY [facility] Last Admin: 01/27/21 09:57 Dose: 81 mg Documented by: Atorvastatin Calcium (Atorvastatin 10 Mg Tab) 5 mg PO QHS [facility] Last Admin: 01/27/21 21:00 Dose: 5 mg Documented by: Levetiracetam (Levetiracetam 500 Mg Tab) 500 mg PO BID [facility] Last Admin: 01/27/21 21:00 Dose: 500 mg Documented by: Lisinopril (Lisinopril 5 Mg Tab) 5 mg PO DAILY [facility] Last Admin: 01/27/21 09:57 Dose: 5 mg Documented by: Melatonin (Melatonin 5 Mg Tab) 5 mg PO QHS PRN PRN Reason: Sleep Last Admin: 01/24/21 23:59 Dose: 5 mg Documented by: Risperidone (Risperidone 0.25 Mg Tab) 0.25 mg PO BID [facility] Last Admin: 01/27/21 21:01 Dose: 0.25 mg Documented by: Sertraline HCl (Sertraline 25 Mg Tab) 25 mg PO QDAY [facility] Last Admin: 01/27/21 09:58 Dose: 25 mg Documented by: Trazodone HCl (Trazodone 50 Mg Tab) 50 mg PO QHS [facility] Last Admin: 01/27/21 21:00 Dose: 50 mg Documented by: Results - Results Labs/Vitals: Laboratory Last Values WBC 11.2 K/mm3 (4.5-11.0) H 01/25/21 19:42 RBC 4.72 M/mm3 (3.65-5.03) 01/25/21 19:42 Hgb 15.3 gm/dl (11.8-15.2) H 01/25/21 19:42 Hct 46.5 % (35.5-45.6) H 01/25/21 19:42 MCV 98 fl (84-94) H 01/25/21 19:42 MCH 32 pg (28-32) 01/25/21 19:42 MCHC 33 % (32-34) 01/25/21 19:42 RDW 14.4 % (13.2-15.2) 01/25/21 19:42 Plt Count 235 K/mm3 (140-440) 01/25/21 19:42 Lymph % (Auto) 20.1 % (13.4-35.0) 01/25/21 19:42 [place] % (Auto) 9.8 % (0.0-7.3) H 01/25/21 19:42 Eos % (Auto) 3.9 % (0.0-4.3) 01/25/21 19:42 Baso % (Auto) 0.6 % (0.0-1.8) 01/25/21 19:42 Lymph # (Auto) 2.2 K/mm3 (1.2-5.4) 01/25/21 19:42 [place] # (Auto) 1.1 K/mm3 (0.0-0.8) H 01/25/21 19:42 Eos # (Auto) 0.4 K/mm3 (0.0-0.4) 01/25/21 19:42 Baso # (Auto) 0.1 K/mm3 (0.0-0.1) 01/25/21 19:42 Seg Neutrophils % 65.6 % (40.0-70.0) 01/25/21 19:42 Seg Neutrophils # 7.3 K/mm3 (1.8-7.7) 01/25/21 19:42 Sodium 139 mmol/L (137-145) 01/25/21 19:42 Potassium 4.4 mmol/L (3.6-5.0) 01/25/21 19:42 Chloride 99.7 mmol/L (98-107) 01/25/21 19:42 Carbon Dioxide 30 mmol/L (22-30) 01/25/21 19:42 Anion Gap 14 mmol/L 01/25/21 19:42 BUN 23 mg/dL (9-20) H 01/25/21 19:42 Creatinine 1.2 mg/dL (0.8-1.3) 01/25/21 19:42 Estimated GFR > 60 ml/min 01/25/21 19:42 BUN/Creatinine Ratio 19 % 01/25/21 19:42 Glucose 98 mg/dL (75-100) 01/25/21 19:42 Hemoglobin A1c 5.5 % (4-6) 01/25/21 19:42 Calcium 9.5 mg/dL (8.4-10.2) 01/25/21 19:42 Total Bilirubin 0.50 mg/dL (0.1-1.2) 01/25/21 19:42 AST 22 units/L (5-40) 01/25/21 19:42 ALT 14 units/L (7-56) 01/25/21 19:42 Alkaline Phosphatase 95 units/L (35-129) 01/25/21 19:42 Total Protein 6.6 g/dL (6.3-8.2) 01/25/21 19:42 Albumin 4.0 g/dL (3.9-5) 01/25/21 19:42 Albumin/Globulin Ratio 1.5 % 01/25/21 19:42 Triglycerides 42 mg/dL (2-149) 01/25/21 19:42 Cholesterol 113 mg/dL (50-199) 01/25/21 19:42 LDL Cholesterol Direct 61 mg/dL (50-130) 01/25/21 19:42 HDL Cholesterol 52 mg/dL (40-59) 01/25/21 19:42 Cholesterol/HDL Ratio 2.17 % 01/25/21 19:42 Last Vital Signs Temp 98.8 F 01/27/21 19:45 Pulse 83 01/27/21 19:45 Resp 15 01/27/21 19:45 BP 140/74 01/27/21 19:45 Pulse Ox 100 01/27/21 19:45
[2021-01-28] MEDS: SERTRALINE 25 MG TAB PO SCH (10:40)
[2021-01-28] MEDS: levETIRAcetam 500 MG TAB PO SCH ×2 (10:40→22:02)
[2021-01-28] MEDS: ASPIRIN EC 81 MG TAB PO SCH (10:40)
[2021-01-28] MEDS: LISINOPRIL 5 MG TAB PO SCH (10:40)
[2021-01-28] MEDS: risperiDONE 0.25 MG TAB PO SCH ×2 (10:40→22:02)
[2021-01-28] MEDS: traZODone 50 MG TAB PO SCH (22:02)
--- NOTE | 2021-01-29 08:28 | Progress Note ---
Subjective Date of service: 01/29/21 Principal diagnosis: Paranoid Schizophrenia Subjective Comment: Per Nurse Note: 1700 Patient spent his day in the activity room most of the morning interacting appropriately with his peers. He denies SI/HI. His appetite is good, he ate 100% of his meals and he is medication compliant. The patient was seen today. He is calm, cooperative and pleasant. He greats me with a smile. He denies SI/HI or hallucinations of any kind. He says he feels "great." The patient says "God is good. He woke me up this morning." The patient says he slept well. REVIEW OF SYSTEMS Constitutional: Negative for weight loss ENT: Negative for stridor Respiratory: Negative for cough or hemoptysis All other systems reviewed and are negative MENTAL STATUS EXAMINATION General Appearance and Behavior: Age appropriate, good hygiene, wearing appropriate clothes, good eye contact, calm, cooperative polite with questioning. Cooperation: Participating/engaged Psychomotor Behavior: unremarkable and within normal limits Mood: great Affect and affective range: congruent with mood Thought Process: Fluent/Logical Thought Content: Within reality Speech: Normal volume, Regular rate and rhythm Suicidal Ideation: Denies SI Homicidal Ideation: Denies HI Hallucinations: Denies Delusions: None elicited Impulse Control: Unimpaired Insight and Judgment: limited insight and judgment Memory: Limited Attention: Limited Orientation: Alert, oriented Assessment and Plan (1) Paranoid schizophrenia Current Visit: Yes Status: Acute Treatment Plan Patient admitted for inpatient psychiatric evaluation, medication adjustment and close monitoring The patient's behavior, mood, sleep and appetite will be closely monitored. Patient enrolled in individual and group therapeutic sessions and encouraged to attend. Patient provided with a safe and structured environment. Patient's physical health needs will be addressed by the Hospitalist. Hospitalist Consulted Labs including CBC, CMP, Lipid profile and Hemoglobin A1C levels ordered for baseline reference Social Assessment will be completed and the Field Collector will work with patient and family to ensure a suitable and safe disposition Medication adjustment will be made as clinically indicated Continue Risperidone 0.25mg po BID Continue Zoloft 25mg po daily (nurse reports patient is tearful a lot) Usual Wellness Zoroastrian/Preservation: - Start Trazodone 50 mg po QHS & 50 mg po QHS PRN between 10 PM & 2 AM for i nsomnia - Start Melatonin 5 mg po QHS to promote circadian rhythm - Start [place]-3 for brain health, reduce impulsivity, and as adjunctive treatment for mood disorder, continue upon discharge given overall benefits. - Start B1 prophylaxis with 200 mg po for 5 days The patient agreed on the treatment plan, understood the risk, benefit, alternative treatment, potential consequence of no treatment, and gave informed consent. Estimated days: 3 Post hospital care: primary care provider, psychiatric provider Medications and Allergies Allergies Allergy/AdvReac Type Severity Reaction Status Date / Time No Known Drug Allergies Allergy Unknown Verified 01/24/21 23:22 Home Medications Medication Instructions Recorded Confirmed Last Taken Type Aspirin [Adult Aspirin] 81 mg PO DAILY 01/24/21 01/24/21 Unknown History Lisinopril [Zestril] 5 mg PO DAILY 01/24/21 01/24/21 Unknown History Lovastatin [Altoprev] 10 mg PO HS 01/24/21 01/24/21 Unknown History Potassium Chloride [K-Dur] 10 meq PO QDAY 01/24/21 01/24/21 Unknown History hydroCHLOROthiazide [HCTZ] 25 mg PO QDAY 01/24/21 01/24/21 Unknown History levETIRAcetam [Keppra TAB] 500 mg PO BID 01/24/21 01/24/21 Unknown History Active Meds: Active Medications Aspirin (Aspirin Ec 81 Mg Tab) 81 mg PO DAILY [facility] Last Admin: 01/28/21 10:40 Dose: 81 mg Documented by: Atorvastatin Calcium (Atorvastatin 10 Mg Tab) 5 mg PO QHS [facility] Last Admin: 01/28/21 22:02 Dose: 5 mg Documented by: Levetiracetam (Levetiracetam 500 Mg Tab) 500 mg PO BID [facility] Last Admin: 01/28/21 22:02 Dose: 500 mg Documented by: Lisinopril (Lisinopril 5 Mg Tab) 5 mg PO DAILY [facility] Last Admin: 01/28/21 10:40 Dose: 5 mg Documented by: Melatonin (Melatonin 5 Mg Tab) 5 mg PO QHS PRN PRN Reason: Sleep Last Admin: 01/24/21 23:59 Dose: 5 mg Documented by: Risperidone (Risperidone 0.25 Mg Tab) 0.25 mg PO BID [facility] Last Admin: 01/28/21 22:02 Dose: 0.25 mg Documented by: Sertraline HCl (Sertraline 25 Mg Tab) 25 mg PO QDAY [facility] Last Admin: 01/28/21 10:40 Dose: 25 mg Documented by: Trazodone HCl (Trazodone 50 Mg Tab) 50 mg PO QHS [facility] Last Admin: 01/28/21 22:02 Dose: 50 mg Documented by: Results - Results Labs/Vitals: Laboratory Last Values WBC 11.2 K/mm3 (4.5-11.0) H 01/25/21 19:42 RBC 4.72 M/mm3 (3.65-5.03) 01/25/21 19:42 Hgb 15.3 gm/dl (11.8-15.2) H 01/25/21 19:42 Hct 46.5 % (35.5-45.6) H 01/25/21 19:42 MCV 98 fl (84-94) H 01/25/21 19:42 MCH 32 pg (28-32) 01/25/21 19:42 MCHC 33 % (32-34) 01/25/21 19:42 RDW 14.4 % (13.2-15.2) 01/25/21 19:42 Plt Count 235 K/mm3 (140-440) 01/25/21 19:42 Lymph % (Auto) 20.1 % (13.4-35.0) 01/25/21 19:42 [place] % (Auto) 9.8 % (0.0-7.3) H 01/25/21 19:42 Eos % (Auto) 3.9 % (0.0-4.3) 01/25/21 19:42 Baso % (Auto) 0.6 % (0.0-1.8) 01/25/21 19:42 Lymph # (Auto) 2.2 K/mm3 (1.2-5.4) 01/25/21 19:42 [place] # (Auto) 1.1 K/mm3 (0.0-0.8) H 01/25/21 19:42 Eos # (Auto) 0.4 K/mm3 (0.0-0.4) 01/25/21 19:42 Baso # (Auto) 0.1 K/mm3 (0.0-0.1) 01/25/21 19:42 Seg Neutrophils % 65.6 % (40.0-70.0) 01/25/21 19:42 Seg Neutrophils # 7.3 K/mm3 (1.8-7.7) 01/25/21 19:42 Sodium 139 mmol/L (137-145) 01/25/21 19:42 Potassium 4.4 mmol/L (3.6-5.0) 01/25/21 19:42 Chloride 99.7 mmol/L (98-107) 01/25/21 19:42 Carbon Dioxide 30 mmol/L (22-30) 01/25/21 19:42 Anion Gap 14 mmol/L 01/25/21 19:42 BUN 23 mg/dL (9-20) H 01/25/21 19:42 Creatinine 1.2 mg/dL (0.8-1.3) 01/25/21 19:42 Estimated GFR > 60 ml/min 01/25/21 19:42 BUN/Creatinine Ratio 19 % 01/25/21 19:42 Glucose 98 mg/dL (75-100) 01/25/21 19:42 Hemoglobin A1c 5.5 % (4-6) 01/25/21 19:42 Calcium 9.5 mg/dL (8.4-10.2) 01/25/21 19:42 Total Bilirubin 0.50 mg/dL (0.1-1.2) 01/25/21 19:42 AST 22 units/L (5-40) 01/25/21 19:42 ALT 14 units/L (7-56) 01/25/21 19:42 Alkaline Phosphatase 95 units/L (35-129) 01/25/21 19:42 Total Protein 6.6 g/dL (6.3-8.2) 01/25/21 19:42 Albumin 4.0 g/dL (3.9-5) 01/25/21 19:42 Albumin/Globulin Ratio 1.5 % 01/25/21 19:42 Triglycerides 42 mg/dL (2-149) 01/25/21 19:42 Cholesterol 113 mg/dL (50-199) 01/25/21 19:42 LDL Cholesterol Direct 61 mg/dL (50-130) 01/25/21 19:42 HDL Cholesterol 52 mg/dL (40-59) 01/25/21 19:42 Cholesterol/HDL Ratio 2.17 % 01/25/21 19:42 Last Vital Signs Temp 98.0 F 01/28/21 18:49 Pulse 95 H 01/28/21 18:49 Resp 15 01/28/21 18:49 BP 157/89 01/28/21 18:49 Pulse Ox 100 01/28/21 18:49
[2021-01-29] MEDS: ASPIRIN EC 81 MG TAB PO SCH (09:12)
[2021-01-29] MEDS: SERTRALINE 25 MG TAB PO SCH (09:12)
[2021-01-29] MEDS: LISINOPRIL 5 MG TAB PO SCH (09:12)
[2021-01-29] MEDS: risperiDONE 0.25 MG TAB PO SCH ×2 (09:12→21:42)
[2021-01-29] MEDS: levETIRAcetam 500 MG TAB PO SCH ×2 (09:12→21:42)
--- NOTE | 2021-01-29 20:02 | Progress Note ---
Assessment and Plan Assessment and plan: --Paranoid schizophrenia Current Visit: Yes Status: Acute Plan to address problem: Management per psych -- Seizure disorder Plan to address problem: No new episodes of seizure ,seizure precautions Resume home seizure medication Do not drive, ambulate as tolerated --Hypertension Plan to address problem: Moderate control, resume home antihypertensives As needed hydralazine -- Dyslipidemia Plan to address problem: Low-cholesterol diet, continue statin --DVT prophylaxis Current Visit: Yes Status: Acute Plan to address problem: SCDs while resting, ambulate as tolerated Closely monitor patient and adjust management as needed Patient feels a lot better Ambulatory and tolerating oral nutrition Continue current management Plan of care reviewed with the patient and his nurse History Interval history: I have seen and examined the patient at the bedside Patient's chart and medications reviewed Patient feels better, no new events reported by the nursing staff Patient did not have any new episodes of seizure Vital signs noted Hospitalist Physical - Constitutional Vitals: Temp Pulse Resp BP Pulse Ox 99.2 F 104 H 18 173/79 99 01/29/21 09:06 01/29/21 09:12 01/29/21 09:06 01/29/21 09:12 01/29/21 09:06 General appearance: Present: no acute distress, well-nourished - EENT Eyes: Present: PERRL, EOM intact - Neck Neck: Present: supple, normal ROM - Respiratory Respiratory effort: normal Respiratory: bilateral: diminished, negative: rales, rhonchi, wheezing - Cardiovascular Rhythm: regular Heart Sounds: Present: S1 & S2 - Extremities Extremities: no ischemia, No edema - Abdominal General gastrointestinal: soft, non-tender, non-distended, normal bowel sounds - Integumentary Integumentary: Present: clear, warm - Psychiatric Psychiatric: appropriate mood/affect, cooperative - Neurologic Neurologic: CNII-XII intact, moves all extremities Results - Labs CBC & Chem 7: 01/25/21 19:42 01/25/21 19:42 Labs: Laboratory Last Values WBC 11.2 K/mm3 (4.5-11.0) H 01/25/21 19:42 RBC 4.72 M/mm3 (3.65-5.03) 01/25/21 19:42 Hgb 15.3 gm/dl (11.8-15.2) H 01/25/21 19:42 Hct 46.5 % (35.5-45.6) H 01/25/21 19:42 MCV 98 fl (84-94) H 01/25/21 19:42 MCH 32 pg (28-32) 01/25/21 19:42 MCHC 33 % (32-34) 01/25/21 19:42 RDW 14.4 % (13.2-15.2) 01/25/21 19:42 Plt Count 235 K/mm3 (140-440) 01/25/21 19:42 Lymph % (Auto) 20.1 % (13.4-35.0) 01/25/21 19:42 [place] % (Auto) 9.8 % (0.0-7.3) H 01/25/21 19:42 Eos % (Auto) 3.9 % (0.0-4.3) 01/25/21 19:42 Baso % (Auto) 0.6 % (0.0-1.8) 01/25/21 19:42 Lymph # (Auto) 2.2 K/mm3 (1.2-5.4) 01/25/21 19:42 [place] # (Auto) 1.1 K/mm3 (0.0-0.8) H 01/25/21 19:42 Eos # (Auto) 0.4 K/mm3 (0.0-0.4) 01/25/21 19:42 Baso # (Auto) 0.1 K/mm3 (0.0-0.1) 01/25/21 19:42 Seg Neutrophils % 65.6 % (40.0-70.0) 01/25/21 19:42 Seg Neutrophils # 7.3 K/mm3 (1.8-7.7) 01/25/21 19:42 Sodium 139 mmol/L (137-145) 01/25/21 19:42 Potassium 4.4 mmol/L (3.6-5.0) 01/25/21 19:42 Chloride 99.7 mmol/L (98-107) 01/25/21 19:42 Carbon Dioxide 30 mmol/L (22-30) 01/25/21 19:42 Anion Gap 14 mmol/L 01/25/21 19:42 BUN 23 mg/dL (9-20) H 01/25/21 19:42 Creatinine 1.2 mg/dL (0.8-1.3) 01/25/21 19:42 Estimated GFR > 60 ml/min 01/25/21 19:42 BUN/Creatinine Ratio 19 % 01/25/21 19:42 Glucose 98 mg/dL (75-100) 01/25/21 19:42 Hemoglobin A1c 5.5 % (4-6) 01/25/21 19:42 Calcium 9.5 mg/dL (8.4-10.2) 01/25/21 19:42 Total Bilirubin 0.50 mg/dL (0.1-1.2) 01/25/21 19:42 AST 22 units/L (5-40) 01/25/21 19:42 ALT 14 units/L (7-56) 01/25/21 19:42 Alkaline Phosphatase 95 units/L (35-129) 01/25/21 19:42 Total Protein 6.6 g/dL (6.3-8.2) 01/25/21 19:42 Albumin 4.0 g/dL (3.9-5) 01/25/21 19:42 Albumin/Globulin Ratio 1.5 % 01/25/21 19:42 Triglycerides 42 mg/dL (2-149) 01/25/21 19:42 Cholesterol 113 mg/dL (50-199) 01/25/21 19:42 LDL Cholesterol Direct 61 mg/dL (50-130) 01/25/21 19:42 HDL Cholesterol 52 mg/dL (40-59) 01/25/21 19:42 Cholesterol/HDL Ratio 2.17 % 01/25/21 19:42 Salguero/IV: Voiding Method Toilet Active Medications - Current Medications Current Medications: Generic Name Dose Route Start Last Admin Trade Name Freq PRN Reason Stop Dose Admin Aspirin 81 mg 01/26/21 10:00 01/29/21 09:12 Aspirin Ec 81 Mg Tab PO 81 mg DAILY [facility] Administration Atorvastatin Calcium 5 mg 01/25/21 22:00 01/28/21 22:02 Atorvastatin 10 Mg Tab PO 5 mg QHS [facility] Administration Levetiracetam 500 mg 01/24/21 23:00 01/29/21 09:12 Levetiracetam 500 Mg Tab PO 500 mg BID [facility] Administration Lisinopril 5 mg 01/26/21 10:00 01/29/21 09:12 Lisinopril 5 Mg Tab PO 5 mg DAILY [facility] Administration Melatonin 5 mg 01/24/21 19:22 01/24/21 23:59 Melatonin 5 Mg Tab PO 5 mg QHS PRN Administration Sleep Risperidone 0.25 mg 01/26/21 10:00 01/29/21 09:12 Risperidone 0.25 Mg Tab PO 0.25 mg BID [facility] Administration Sertraline HCl 25 mg 01/27/21 10:00 01/29/21 09:12 Sertraline 25 Mg Tab PO 25 mg QDAY [facility] Administration Trazodone HCl 50 mg 01/24/21 22:00 01/28/21 22:02 Trazodone 50 Mg Tab PO 50 mg QHS [facility] Administration
[2021-01-29] MEDS ORDERED: hydrALAZINE 10 MG TAB PO PRN (20:08)
[2021-01-29] MEDS: traZODone 50 MG TAB PO SCH (21:42)
--- NOTE | 2021-01-30 08:41 | Discharge Summary ---
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 The patient's mood, cognition, behavior, moral support are improved and stabilized. St the time of discharge, the patient had no endangering behavior and no debilitating adverse effects. The patient agreed on potential consequences of no treatment and gave informed consent. Disposition: - TO HOME OR SELFCARE Time spent for discharge: 38 Allergies/Adverse Reactions: Allergies No Known Drug Allergies Allergy (Verified 01/24/21 23:22) Unknown Vital Signs: Last Vital Signs Temp 98.6 F 01/29/21 19:27 Pulse 78 01/29/21 19:27 Resp 16 01/29/21 19:27 BP 163/93 01/29/21 19:27 Pulse Ox 98 01/29/21 19:27 Last Lab: Laboratory Last Values WBC 11.2 K/mm3 (4.5-11.0) H 01/25/21 19:42 RBC 4.72 M/mm3 (3.65-5.03) 01/25/21 19:42 Hgb 15.3 gm/dl (11.8-15.2) H 01/25/21 19:42 Hct 46.5 % (35.5-45.6) H 01/25/21 19:42 MCV 98 fl (84-94) H 01/25/21 19:42 MCH 32 pg (28-32) 01/25/21 19:42 MCHC 33 % (32-34) 01/25/21 19:42 RDW 14.4 % (13.2-15.2) 01/25/21 19:42 Plt Count 235 K/mm3 (140-440) 01/25/21 19:42 Lymph % (Auto) 20.1 % (13.4-35.0) 01/25/21 19:42 [place] % (Auto) 9.8 % (0.0-7.3) H 01/25/21 19:42 Eos % (Auto) 3.9 % (0.0-4.3) 01/25/21 19:42 Baso % (Auto) 0.6 % (0.0-1.8) 01/25/21 19:42 Lymph # (Auto) 2.2 K/mm3 (1.2-5.4) 01/25/21 19:42 [place] # (Auto) 1.1 K/mm3 (0.0-0.8) H 01/25/21 19:42 Eos # (Auto) 0.4 K/mm3 (0.0-0.4) 01/25/21 19:42 Baso # (Auto) 0.1 K/mm3 (0.0-0.1) 01/25/21 19:42 Seg Neutrophils % 65.6 % (40.0-70.0) 01/25/21 19:42 Seg Neutrophils # 7.3 K/mm3 (1.8-7.7) 01/25/21 19:42 Sodium 139 mmol/L (137-145) 01/25/21 19:42 Potassium 4.4 mmol/L (3.6-5.0) 01/25/21 19:42 Chloride 99.7 mmol/L (98-107) 01/25/21 19:42 Carbon Dioxide 30 mmol/L (22-30) 01/25/21 19:42 Anion Gap 14 mmol/L 01/25/21 19:42 BUN 23 mg/dL (9-20) H 01/25/21 19:42 Creatinine 1.2 mg/dL (0.8-1.3) 01/25/21 19:42 Estimated GFR > 60 ml/min 01/25/21 19:42 BUN/Creatinine Ratio 19 % 01/25/21 19:42 Glucose 98 mg/dL (75-100) 01/25/21 19:42 Hemoglobin A1c 5.5 % (4-6) 01/25/21 19:42 Calcium 9.5 mg/dL (8.4-10.2) 01/25/21 19:42 Total Bilirubin 0.50 mg/dL (0.1-1.2) 01/25/21 19:42 AST 22 units/L (5-40) 01/25/21 19:42 ALT 14 units/L (7-56) 01/25/21 19:42 Alkaline Phosphatase 95 units/L (35-129) 01/25/21 19:42 Total Protein 6.6 g/dL (6.3-8.2) 01/25/21 19:42 Albumin 4.0 g/dL (3.9-5) 01/25/21 19:42 Albumin/Globulin Ratio 1.5 % 01/25/21 19:42 Triglycerides 42 mg/dL (2-149) 01/25/21 19:42 Cholesterol 113 mg/dL (50-199) 01/25/21 19:42 LDL Cholesterol Direct 61 mg/dL (50-130) 01/25/21 19:42 HDL Cholesterol 52 mg/dL (40-59) 01/25/21 19:42 Cholesterol/HDL Ratio 2.17 % 01/25/21 19:42 Core Measure Documentation - Palliative Care Palliative Care/ Comfort Measures: Not Applicable - Core Measures Any of the following diagnoses?: none Exam - Constitutional Vitals: Temp Pulse Resp BP Pulse Ox 98.6 F 78 16 163/93 98 01/29/21 19:27 01/29/21 19:27 01/29/21 19:27 01/29/21 19:27 01/29/21 19:27 General appearance: Present: no acute distress - EENT Eyes: Present: PERRL, EOM intact ENT: hearing intact, clear oral mucosa - Neck Neck: Present: supple, normal ROM - Respiratory Respiratory effort: normal Plan Activity: advance as tolerated Weight Bearing Status: Weight Bear as Tolerated Care Plan Goals: Maintain good and stable mental health Plan of Treatment: The patient should be compliant with medications, not to use drugs, and not to drink alcohol. The patient understands that if suicidal ideas, homicidal ideas or any endangering feeling arise, the patient should seek assistance including, but not limited to crisis hotline, and emergency room. Health Concerns: HTN, Dyslipidemia Follow up with: PRIMARY CARE, [Primary Care Provider] - 7 Days Prescriptions: traZODone [Desyrel] 50 mg PO QHS #30 tablet Melatonin [Melatonin 5MG TAB] 5 mg PO QHS PRN #30 tablet PRN Reason: Sleep risperiDONE [RisperDAL] 0.25 mg PO BID #60 tablet Sertraline [Zoloft] 25 mg PO QDAY #30 tablet
--- NOTE | 2021-01-30 09:13 | Progress Note ---
Subjective Date of service: 01/30/21 Principal diagnosis: Paranoid Schizophrenia Medications and Allergies Allergies Allergy/AdvReac Type Severity Reaction Status Date / Time No Known Drug Allergies Allergy Unknown Verified 01/24/21 23:22 Home Medications Medication Instructions Recorded Confirmed Last Taken Type Aspirin [Adult Aspirin] 81 mg PO DAILY 01/24/21 01/24/21 Unknown History Lisinopril [Zestril] 5 mg PO DAILY 01/24/21 01/24/21 Unknown History Lovastatin [Altoprev] 10 mg PO HS 01/24/21 01/24/21 Unknown History Potassium Chloride [K-Dur] 10 meq PO QDAY 01/24/21 01/24/21 Unknown History hydroCHLOROthiazide [HCTZ] 25 mg PO QDAY 01/24/21 01/24/21 Unknown History levETIRAcetam [Keppra TAB] 500 mg PO BID 01/24/21 01/24/21 Unknown History Melatonin [Melatonin 5MG TAB] 5 mg PO QHS PRN #30 tablet 01/30/21 Unknown Rx Sertraline [Zoloft] 25 mg PO QDAY #30 tablet 01/30/21 Unknown Rx risperiDONE [RisperDAL] 0.25 mg PO BID #60 tablet 01/30/21 Unknown Rx traZODone [Desyrel] 50 mg PO QHS #30 tablet 01/30/21 Unknown Rx Active Meds: Active Medications Aspirin (Aspirin Ec 81 Mg Tab) 81 mg PO DAILY [facility] Last Admin: 01/29/21 09:12 Dose: 81 mg Documented by: Atorvastatin Calcium (Atorvastatin 10 Mg Tab) 5 mg PO QHS [facility] Last Admin: 01/29/21 21:42 Dose: 5 mg Documented by: Hydralazine HCl (Hydralazine 10 Mg Tab) 10 mg PO Q4H PRN PRN Reason: Hypertension Levetiracetam (Levetiracetam 500 Mg Tab) 500 mg PO BID [facility] Last Admin: 01/29/21 21:42 Dose: 500 mg Documented by: Lisinopril (Lisinopril 5 Mg Tab) 5 mg PO DAILY [facility] Last Admin: 01/29/21 09:12 Dose: 5 mg Documented by: Melatonin (Melatonin 5 Mg Tab) 5 mg PO QHS PRN PRN Reason: Sleep Last Admin: 01/24/21 23:59 Dose: 5 mg Documented by: Risperidone (Risperidone 0.25 Mg Tab) 0.25 mg PO BID [facility] Last Admin: 01/29/21 21:42 Dose: 0.25 mg Documented by: Sertraline HCl (Sertraline 25 Mg Tab) 25 mg PO QDAY [facility] Last Admin: 01/29/21 09:12 Dose: 25 mg Documented by: Trazodone HCl (Trazodone 50 Mg Tab) 50 mg PO QHS [facility] Last Admin: 01/29/21 21:42 Dose: 50 mg Documented by: Results - Results Labs/Vitals: Laboratory Last Values WBC 11.2 K/mm3 (4.5-11.0) H 01/25/21 19:42 RBC 4.72 M/mm3 (3.65-5.03) 01/25/21 19:42 Hgb 15.3 gm/dl (11.8-15.2) H 01/25/21 19:42 Hct 46.5 % (35.5-45.6) H 01/25/21 19:42 MCV 98 fl (84-94) H 01/25/21 19:42 MCH 32 pg (28-32) 01/25/21 19:42 MCHC 33 % (32-34) 01/25/21 19:42 RDW 14.4 % (13.2-15.2) 01/25/21 19:42 Plt Count 235 K/mm3 (140-440) 01/25/21 19:42 Lymph % (Auto) 20.1 % (13.4-35.0) 01/25/21 19:42 [place] % (Auto) 9.8 % (0.0-7.3) H 01/25/21 19:42 Eos % (Auto) 3.9 % (0.0-4.3) 01/25/21 19:42 Baso % (Auto) 0.6 % (0.0-1.8) 01/25/21 19:42 Lymph # (Auto) 2.2 K/mm3 (1.2-5.4) 01/25/21 19:42 [place] # (Auto) 1.1 K/mm3 (0.0-0.8) H 01/25/21 19:42 Eos # (Auto) 0.4 K/mm3 (0.0-0.4) 01/25/21 19:42 Baso # (Auto) 0.1 K/mm3 (0.0-0.1) 01/25/21 19:42 Seg Neutrophils % 65.6 % (40.0-70.0) 01/25/21 19:42 Seg Neutrophils # 7.3 K/mm3 (1.8-7.7) 01/25/21 19:42 Sodium 139 mmol/L (137-145) 01/25/21 19:42 Potassium 4.4 mmol/L (3.6-5.0) 01/25/21 19:42 Chloride 99.7 mmol/L (98-107) 01/25/21 19:42 Carbon Dioxide 30 mmol/L (22-30) 01/25/21 19:42 Anion Gap 14 mmol/L 01/25/21 19:42 BUN 23 mg/dL (9-20) H 01/25/21 19:42 Creatinine 1.2 mg/dL (0.8-1.3) 01/25/21 19:42 Estimated GFR > 60 ml/min 01/25/21 19:42 BUN/Creatinine Ratio 19 % 01/25/21 19:42 Glucose 98 mg/dL (75-100) 01/25/21 19:42 Hemoglobin A1c 5.5 % (4-6) 01/25/21 19:42 Calcium 9.5 mg/dL (8.4-10.2) 01/25/21 19:42 Total Bilirubin 0.50 mg/dL (0.1-1.2) 01/25/21 19:42 AST 22 units/L (5-40) 01/25/21 19:42 ALT 14 units/L (7-56) 01/25/21 19:42 Alkaline Phosphatase 95 units/L (35-129) 01/25/21 19:42 Total Protein 6.6 g/dL (6.3-8.2) 01/25/21 19:42 Albumin 4.0 g/dL (3.9-5) 01/25/21 19:42 Albumin/Globulin Ratio 1.5 % 01/25/21 19:42 Triglycerides 42 mg/dL (2-149) 01/25/21 19:42 Cholesterol 113 mg/dL (50-199) 01/25/21 19:42 LDL Cholesterol Direct 61 mg/dL (50-130) 01/25/21 19:42 HDL Cholesterol 52 mg/dL (40-59) 01/25/21 19:42 Cholesterol/HDL Ratio 2.17 % 01/25/21 19:42 Last Vital Signs Temp 98.6 F 01/29/21 19:27 Pulse 78 01/29/21 19:27 Resp 16 01/29/21 19:27 BP 163/93 01/29/21 19:27 Pulse Ox 98 01/29/21 19:27
[2021-01-30 09:14] VITALS: BP 115/72
[2021-01-30] MEDS: SERTRALINE 25 MG TAB PO SCH (09:14)
[2021-01-30] MEDS: ASPIRIN EC 81 MG TAB PO SCH (09:14)
[2021-01-30] MEDS: risperiDONE 0.25 MG TAB PO SCH (09:14)
[2021-01-30] MEDS: levETIRAcetam 500 MG TAB PO SCH (09:14)
[2021-01-30] MEDS: LISINOPRIL 5 MG TAB PO SCH (09:15)
--- NOTE | 2021-01-30 09:15 | Progress Note ---
Subjective Date of service: 01/30/21 Principal diagnosis: Paranoid Schizophrenia Subjective Comment: The patient was seen today. She was cheerful and in a great temperament seating on her bed. She says " she is doing well and feels great but i am considering something". For the question of what is that? she said in the event that you shawn me time i will tell you and kept quite. After like 30 second, she said "i am thinking about the people that i let to remain in my house that i should not; You know that it is not good to let somebody know your privacy to who you are not knowing very well. The patient says she sleep well last night and has a good appetite. She denies any SI/HI or hallucinations of any kind. Medications and Allergies Allergies Allergy/AdvReac Type Severity Reaction Status Date / Time No Known Drug Allergies Allergy Unknown Verified 01/24/21 23:22 Home Medications Medication Instructions Recorded Confirmed Last Taken Type Aspirin [Adult Aspirin] 81 mg PO DAILY 01/24/21 01/24/21 Unknown History Lisinopril [Zestril] 5 mg PO DAILY 01/24/21 01/24/21 Unknown History Lovastatin [Altoprev] 10 mg PO HS 01/24/21 01/24/21 Unknown History Potassium Chloride [K-Dur] 10 meq PO QDAY 01/24/21 01/24/21 Unknown History hydroCHLOROthiazide [HCTZ] 25 mg PO QDAY 01/24/21 01/24/21 Unknown History levETIRAcetam [Keppra TAB] 500 mg PO BID 01/24/21 01/24/21 Unknown History Melatonin [Melatonin 5MG TAB] 5 mg PO QHS PRN #30 tablet 01/30/21 Unknown Rx Sertraline [Zoloft] 25 mg PO QDAY #30 tablet 01/30/21 Unknown Rx risperiDONE [RisperDAL] 0.25 mg PO BID #60 tablet 01/30/21 Unknown Rx traZODone [Desyrel] 50 mg PO QHS #30 tablet 01/30/21 Unknown Rx Active Meds: Active Medications Aspirin (Aspirin Ec 81 Mg Tab) 81 mg PO DAILY [facility] Last Admin: 01/29/21 09:12 Dose: 81 mg Documented by: Atorvastatin Calcium (Atorvastatin 10 Mg Tab) 5 mg PO QHS [facility] Last Admin: 01/29/21 21:42 Dose: 5 mg Documented by: Hydralazine HCl (Hydralazine 10 Mg Tab) 10 mg PO Q4H PRN PRN Reason: Hypertension Levetiracetam (Levetiracetam 500 Mg Tab) 500 mg PO BID [facility] Last Admin: 01/29/21 21:42 Dose: 500 mg Documented by: Lisinopril (Lisinopril 5 Mg Tab) 5 mg PO DAILY [facility] Last Admin: 01/29/21 09:12 Dose: 5 mg Documented by: Melatonin (Melatonin 5 Mg Tab) 5 mg PO QHS PRN PRN Reason: Sleep Last Admin: 01/24/21 23:59 Dose: 5 mg Documented by: Risperidone (Risperidone 0.25 Mg Tab) 0.25 mg PO BID [facility] Last Admin: 01/29/21 21:42 Dose: 0.25 mg Documented by: Sertraline HCl (Sertraline 25 Mg Tab) 25 mg PO QDAY [facility] Last Admin: 01/29/21 09:12 Dose: 25 mg Documented by: Trazodone HCl (Trazodone 50 Mg Tab) 50 mg PO QHS [facility] Last Admin: 01/29/21 21:42 Dose: 50 mg Documented by: Results - Results Labs/Vitals: Laboratory Last Values WBC 11.2 K/mm3 (4.5-11.0) H 01/25/21 19:42 RBC 4.72 M/mm3 (3.65-5.03) 01/25/21 19:42 Hgb 15.3 gm/dl (11.8-15.2) H 01/25/21 19:42 Hct 46.5 % (35.5-45.6) H 01/25/21 19:42 MCV 98 fl (84-94) H 01/25/21 19:42 MCH 32 pg (28-32) 01/25/21 19:42 MCHC 33 % (32-34) 01/25/21 19:42 RDW 14.4 % (13.2-15.2) 01/25/21 19:42 Plt Count 235 K/mm3 (140-440) 01/25/21 19:42 Lymph % (Auto) 20.1 % (13.4-35.0) 01/25/21 19:42 [place] % (Auto) 9.8 % (0.0-7.3) H 01/25/21 19:42 Eos % (Auto) 3.9 % (0.0-4.3) 01/25/21 19:42 Baso % (Auto) 0.6 % (0.0-1.8) 01/25/21 19:42 Lymph # (Auto) 2.2 K/mm3 (1.2-5.4) 01/25/21 19:42 [place] # (Auto) 1.1 K/mm3 (0.0-0.8) H 01/25/21 19:42 Eos # (Auto) 0.4 K/mm3 (0.0-0.4) 01/25/21 19:42 Baso # (Auto) 0.1 K/mm3 (0.0-0.1) 01/25/21 19:42 Seg Neutrophils % 65.6 % (40.0-70.0) 01/25/21 19:42 Seg Neutrophils # 7.3 K/mm3 (1.8-7.7) 01/25/21 19:42 Sodium 139 mmol/L (137-145) 01/25/21 19:42 Potassium 4.4 mmol/L (3.6-5.0) 01/25/21 19:42 Chloride 99.7 mmol/L (98-107) 01/25/21 19:42 Carbon Dioxide 30 mmol/L (22-30) 01/25/21 19:42 Anion Gap 14 mmol/L 01/25/21 19:42 BUN 23 mg/dL (9-20) H 01/25/21 19:42 Creatinine 1.2 mg/dL (0.8-1.3) 01/25/21 19:42 Estimated GFR > 60 ml/min 01/25/21 19:42 BUN/Creatinine Ratio 19 % 01/25/21 19:42 Glucose 98 mg/dL (75-100) 01/25/21 19:42 Hemoglobin A1c 5.5 % (4-6) 01/25/21 19:42 Calcium 9.5 mg/dL (8.4-10.2) 01/25/21 19:42 Total Bilirubin 0.50 mg/dL (0.1-1.2) 01/25/21 19:42 AST 22 units/L (5-40) 01/25/21 19:42 ALT 14 units/L (7-56) 01/25/21 19:42 Alkaline Phosphatase 95 units/L (35-129) 01/25/21 19:42 Total Protein 6.6 g/dL (6.3-8.2) 01/25/21 19:42 Albumin 4.0 g/dL (3.9-5) 01/25/21 19:42 Albumin/Globulin Ratio 1.5 % 01/25/21 19:42 Triglycerides 42 mg/dL (2-149) 01/25/21 19:42 Cholesterol 113 mg/dL (50-199) 01/25/21 19:42 LDL Cholesterol Direct 61 mg/dL (50-130) 01/25/21 19:42 HDL Cholesterol 52 mg/dL (40-59) 01/25/21 19:42 Cholesterol/HDL Ratio 2.17 % 01/25/21 19:42 Last Vital Signs Temp 98.6 F 01/29/21 19:27 Pulse 78 01/29/21 19:27 Resp 16 01/29/21 19:27 BP 163/93 01/29/21 19:27 Pulse Ox 98 01/29/21 19:27
== END 2021-01-30 12:58 | disposition home or self-care (01) | DRG 885 ==
LOC: 3A 16:07 → UNDOADMIN 16:07 → 5A 22:56
PROVIDERS: ADMIT Psychiatry & Neurology Psychiatry; ATTEND Psychiatry & Neurology Psychiatry
DX: F20.0 Paranoid schizophrenia (principal); I10 Essential (primary) hypertension; E78.5 Hyperlipidemia, unspecified; R56.9 Unspecified convulsions; Z86.73 Personal history of transient ischemic attack (TIA), and cerebral infarction without residual deficits; Z79.82 Long term (current) use of aspirin
CPT/HCPCS: 36415; 80053; 80061; 83036; 85025; G0378; A9270-GY